=== PATIENT | female | born 1960 ===

== ENCOUNTER → 2018-06-05 | Day surgery (SDC) | payer OTHER ==
[~2018-06-05] MED LIST: FOSAMAX70 MG PO; SIMVASTATIN20 MG PO; SYNTHROID112 MCG PO; VITAMIN D10000 UNIT PO
== END | disposition home or self-care (01) ==
LOC: ADM 05-31 14:15 → CIR.AMB 06:46
DX: N84.0 Polyp of corpus uteri (principal)